=== PATIENT | male | born 1940 | race Caucasian/White ===

== ENCOUNTER 2020-04-29 16:28 | Inpatient (IN) ==
[2020-04-30] MEDS ORDERED: Acetaminophen 325 MG TABLET PO PRN (16:42)
[2020-04-30] MEDS: Insulin LISPRO 300 UNITS/3 ML VIAL SQ SCH ×2 (17:21→21:02)
[2020-04-30] MEDS: Gabapentin 300 MG CAPSULE PO SCH (20:59)
[2020-04-30] MEDS: Acetaminophen 325 MG TABLET PO SCH (21:00)
[2020-04-30] MEDS: ANAGRELIDE HCL 1 MG PO SCH (21:05)
[2020-05-01 05:31] LABS: Basophils # 0.1 K/mcL (0.0-0.2); Basophils % 0.8 %; Eosinophils # 0.2 K/mcL (0.0-0.6); Eosinophils % 1.7 %; Hematocrit 35.7 % (37.5-50.1); Hemoglobin 11.4 g/dL (12.9-16.9); Immature Granulocytes % 4.4 % (0-4); Lymphocytes % 10.6 %; Mean Corpuscular HGB Conc 31.9 g/dL (31.6-35.5); Mean Corpuscular Hemoglobin 27.7 pg (28.0-33.3); Mean Corpuscular Volume 86.9 fL (83.0-100.0); Mean Platelet Volume 11.6 fL (9.4-12.4); Monocytes # 0.6 K/mcL (0.0-1.3); Monocytes % 7.1 %; Neutrophils # 6.8 K/mcL (1.6-8.9); Nucleated Red Blood Cells 0.2 /100 WBC (0); Platelet Count 221 K/mcL (140-400); Red Blood Count 4.11 M/mcL (4.19-5.50); Red Cell Distribution Width 18.9 % (11.5-14.5); Segmented Neutrophils % 75.4 %
[2020-05-01 05:46] LABS: Calcium 9.3 mg/dL (8.6-10.3); Potassium 4.1 mEq/L (3.5-5.1)
[2020-05-01] MEDS: Insulin LISPRO 300 UNITS/3 ML VIAL SQ SCH ×4 (08:45→21:59)
[2020-05-01] MEDS: amLODIPine 5 MG TABLET PO SCH (08:52)
[2020-05-01] MEDS: allopurinoL 100 MG TABLET PO SCH (08:52)
[2020-05-01] MEDS: Cholecalciferol (D-3) 1,000 UNIT (25MCG) TABLET PO SCH (08:52)
[2020-05-01] MEDS: Gabapentin 300 MG CAPSULE PO SCH ×2 (08:52→21:51)
[2020-05-01] MEDS: Acetaminophen 325 MG TABLET PO SCH ×2 (08:52→21:50)
[2020-05-01] MEDS: Aspirin Enteric Coated 81 MG Tablet PO SCH (08:52)
[2020-05-01] MEDS: Insulin DETEMIR 100 UNIT/ML X5UNITS SQ SCH (08:53)
[2020-05-01] MEDS: (Alogliptin Benzoate [Alogliptin] 12.5 MG) PO SCH (08:53)
[2020-05-01] MEDS: ANAGRELIDE HCL 1 MG PO SCH ×2 (08:53→22:00)
[2020-05-01] MEDS ORDERED: Ondansetron 4 MG/2 ML VIAL IVP PRN (19:25)
[2020-05-02] MEDS: Cholecalciferol (D-3) 1,000 UNIT (25MCG) TABLET PO SCH (08:38)
[2020-05-02] MEDS: Gabapentin 300 MG CAPSULE PO SCH ×2 (08:38→21:13)
[2020-05-02] MEDS: Aspirin Enteric Coated 81 MG Tablet PO SCH (08:38)
[2020-05-02] MEDS: amLODIPine 5 MG TABLET PO SCH (08:39)
[2020-05-02] MEDS: Insulin DETEMIR 100 UNIT/ML X5UNITS SQ SCH (08:39)
[2020-05-02] MEDS: allopurinoL 100 MG TABLET PO SCH (08:39)
[2020-05-02] MEDS: Insulin LISPRO 300 UNITS/3 ML VIAL SQ SCH ×4 (08:39→21:12)
[2020-05-02] MEDS: Acetaminophen 325 MG TABLET PO SCH ×2 (08:39→21:14)
[2020-05-02] MEDS: (Alogliptin Benzoate [Alogliptin] 12.5 MG) PO SCH (08:52)
[2020-05-02] MEDS: ANAGRELIDE HCL 1 MG PO SCH ×2 (08:52→21:14)
[2020-05-02 12:43] LABS: Adenovirus Not Detected (Not Detect); Bordetella Pertussis Not Detected (Not Detect); Chlamydophila pneumoniae Not Detected (Not Detect); Coronavirus 229E Not Detected (Not Detect); Coronavirus HKU1 Not Detected (Not Detect); Coronavirus NL63 Not Detected (Not Detect); Coronavirus OC43 Not Detected (Not Detect); Human Metapneumovirus Not Detected (Not Detect); Human Rhinovirus/Enterovirus Not Detected (Not Detect); Influenza A Subtype 2009 H1 Not Detected (Not Detect); Influenza B Not Detected (Not Detect); Mycoplasma pneumoniae Not Detected (Not Detect); Parainfluenza Virus 1 Not Detected (Not Detect); Parainfluenza Virus 2 Not Detected (Not Detect); Parainfluenza Virus 3 Not Detected (Not Detect); Parainfluenza Virus 4 Not Detected (Not Detect); Respiratory Syncytial Virus Not Detected (Not Detect)
[2020-05-02 12:46] LABS: SARS-CoV-2 Not Detected (Not Detect)
[2020-05-02 13:35] LABS: Basophils # 0.1 K/mcL (0.0-0.2); Basophils % 0.3 %; Eosinophils # 0.1 K/mcL (0.0-0.6); Eosinophils % 0.4 %; Hematocrit 35.3 % (37.5-50.1); Hemoglobin 11.3 g/dL (12.9-16.9); Immature Granulocytes % 1.9 % (0-4); Lymphocytes # 0.6 K/mcL (0.6-4.6); Lymphocytes % 4.2 %; Mean Corpuscular Volume 87.4 fL (83.0-100.0); Mean Platelet Volume 11.8 fL (9.4-12.4); Monocytes # 0.8 K/mcL (0.0-1.3); Monocytes % 5.4 %; Neutrophils # 13.3 K/mcL (1.6-8.9); Platelet Count 254 K/mcL (140-400); Red Blood Count 4.04 M/mcL (4.19-5.50); Red Cell Distribution Width 19.3 % (11.5-14.5); Segmented Neutrophils % 87.8 %; White Blood Count 15.1 K/mcL (4.3-11.1)
[2020-05-02 13:45] LABS: Calcium 8.9 mg/dL (8.6-10.3); Potassium 4.3 mEq/L (3.5-5.1)
[2020-05-02] MEDS: Piperacillin/Tazobactam 3.375 GM in 0.9 % Sodium Chloride Mini Bag 100 ML IVPB SCH (16:09)
[2020-05-03] MEDS: Piperacillin/Tazobactam 3.375 GM in 0.9 % Sodium Chloride Mini Bag 100 ML IVPB SCH ×3 (00:44→15:17)
[2020-05-03 07:20] LABS: Basophils % 0.3 %; Eosinophils # 0.2 K/mcL (0.0-0.6); Eosinophils % 1.8 %; Hemoglobin 10.5 g/dL (12.9-16.9); Immature Granulocytes % 1.5 % (0-4); Lymphocytes # 0.7 K/mcL (0.6-4.6); Lymphocytes % 6.1 %; Mean Corpuscular HGB Conc 31.8 g/dL (31.6-35.5); Mean Corpuscular Hemoglobin 27.9 pg (28.0-33.3); Mean Corpuscular Volume 87.5 fL (83.0-100.0); Mean Platelet Volume 12.2 fL (9.4-12.4); Monocytes # 0.9 K/mcL (0.0-1.3); Monocytes % 7.9 %; Nucleated Red Blood Cells 0.2 /100 WBC (0); Platelet Count 231 K/mcL (140-400); Red Blood Count 3.77 M/mcL (4.19-5.50); Red Cell Distribution Width 19.4 % (11.5-14.5); Segmented Neutrophils % 82.4 %; White Blood Count 11.5 K/mcL (4.3-11.1)
[2020-05-03 07:41] LABS: Neutrophils # 9.5 K/mcL (1.6-8.9)
[2020-05-03] MEDS: Insulin LISPRO 300 UNITS/3 ML VIAL SQ SCH ×4 (08:03→21:12)
[2020-05-03 08:47] LABS: Calcium 8.9 mg/dL (8.6-10.3); Potassium 4.2 mEq/L (3.5-5.1)
[2020-05-03] MEDS: Cholecalciferol (D-3) 1,000 UNIT (25MCG) TABLET PO SCH (09:34)
[2020-05-03] MEDS: Gabapentin 300 MG CAPSULE PO SCH ×2 (09:34→21:04)
[2020-05-03] MEDS: allopurinoL 100 MG TABLET PO SCH (09:35)
[2020-05-03] MEDS: Acetaminophen 325 MG TABLET PO SCH ×2 (09:35→21:03)
[2020-05-03] MEDS: Aspirin Enteric Coated 81 MG Tablet PO SCH (09:35)
[2020-05-03] MEDS: amLODIPine 5 MG TABLET PO SCH (09:36)
[2020-05-03] MEDS: (Alogliptin Benzoate [Alogliptin] 12.5 MG) PO SCH (09:37)
[2020-05-03] MEDS: ANAGRELIDE HCL 1 MG PO SCH ×2 (09:37→21:04)
[2020-05-03] MEDS: 0.9 % Sodium Chloride 1,000 ML IVC SCH (09:38)
[2020-05-03] MEDS: Insulin DETEMIR 100 UNIT/ML X5UNITS SQ SCH (09:42)
[2020-05-04] MEDS: Piperacillin/Tazobactam 3.375 GM in 0.9 % Sodium Chloride Mini Bag 100 ML IVPB SCH ×4 (01:43→23:02)
[2020-05-04] MEDS: 0.9 % Sodium Chloride 1,000 ML IVC SCH ×4 (06:33→19:53)
[2020-05-04] MEDS: Insulin LISPRO 300 UNITS/3 ML VIAL SQ SCH ×4 (07:50→20:16)
[2020-05-04] MEDS: amLODIPine 5 MG TABLET PO SCH (07:52)
[2020-05-04] MEDS: Cholecalciferol (D-3) 1,000 UNIT (25MCG) TABLET PO SCH (07:52)
[2020-05-04] MEDS: Acetaminophen 325 MG TABLET PO SCH ×2 (07:53→19:52)
[2020-05-04] MEDS: Aspirin Enteric Coated 81 MG Tablet PO SCH (07:53)
[2020-05-04] MEDS: allopurinoL 100 MG TABLET PO SCH (07:53)
[2020-05-04] MEDS: Gabapentin 300 MG CAPSULE PO SCH ×2 (07:53→19:51)
[2020-05-04] MEDS: ANAGRELIDE HCL 1 MG PO SCH ×2 (07:53→22:06)
[2020-05-04] MEDS: (Alogliptin Benzoate [Alogliptin] 12.5 MG) PO SCH (07:53)
[2020-05-04] MEDS: Insulin DETEMIR 100 UNIT/ML X5UNITS SQ SCH (08:07)
[2020-05-05] MEDS: 0.9 % Sodium Chloride 1,000 ML IVC SCH ×2 (04:07→10:56)
[2020-05-05 06:02] LABS: Hematocrit 33.2 % (37.5-50.1); Hemoglobin 10.5 g/dL (12.9-16.9); Mean Corpuscular HGB Conc 31.6 g/dL (31.6-35.5); Mean Corpuscular Hemoglobin 27.8 pg (28.0-33.3); Mean Corpuscular Volume 87.8 fL (83.0-100.0); Mean Platelet Volume 12.3 fL (9.4-12.4); Platelet Count 283 K/mcL (140-400); Red Blood Count 3.78 M/mcL (4.19-5.50)
[2020-05-05 06:21] LABS: Calcium 8.9 mg/dL (8.6-10.3); Potassium 4.1 mEq/L (3.5-5.1)
[2020-05-05] MEDS: Cholecalciferol (D-3) 1,000 UNIT (25MCG) TABLET PO SCH (08:23)
[2020-05-05] MEDS: Piperacillin/Tazobactam 3.375 GM in 0.9 % Sodium Chloride Mini Bag 100 ML IVPB SCH (08:23)
[2020-05-05] MEDS: Gabapentin 300 MG CAPSULE PO SCH ×2 (08:23→20:51)
[2020-05-05] MEDS: Aspirin Enteric Coated 81 MG Tablet PO SCH (08:24)
[2020-05-05] MEDS: Insulin DETEMIR 100 UNIT/ML X5UNITS SQ SCH (08:24)
[2020-05-05] MEDS: Acetaminophen 325 MG TABLET PO SCH ×2 (08:24→20:54)
[2020-05-05] MEDS: allopurinoL 100 MG TABLET PO SCH (08:24)
[2020-05-05] MEDS: Insulin LISPRO 300 UNITS/3 ML VIAL SQ SCH ×4 (08:24→20:43)
[2020-05-05] MEDS: amLODIPine 5 MG TABLET PO SCH (08:24)
[2020-05-05] MEDS: (Alogliptin Benzoate [Alogliptin] 12.5 MG) PO SCH (09:24)
[2020-05-05] MEDS: ANAGRELIDE HCL 1 MG PO SCH ×2 (09:24→20:55)
[2020-05-06] MEDS: polyethylene glycoL 3350 17 GM POWD.PACK PO SCH (08:35)
[2020-05-06] MEDS: Cholecalciferol (D-3) 1,000 UNIT (25MCG) TABLET PO SCH (08:35)
[2020-05-06] MEDS: Gabapentin 300 MG CAPSULE PO SCH ×2 (08:36→20:20)
[2020-05-06] MEDS: amLODIPine 5 MG TABLET PO SCH (08:36)
[2020-05-06] MEDS: allopurinoL 100 MG TABLET PO SCH (08:36)
[2020-05-06] MEDS: Acetaminophen 325 MG TABLET PO SCH ×2 (08:36→20:24)
[2020-05-06] MEDS: Aspirin Enteric Coated 81 MG Tablet PO SCH (08:36)
[2020-05-06] MEDS: ANAGRELIDE HCL 1 MG PO SCH ×2 (08:37→20:24)
[2020-05-06] MEDS: Insulin LISPRO 300 UNITS/3 ML VIAL SQ SCH ×4 (08:37→20:27)
[2020-05-06] MEDS: (Alogliptin Benzoate [Alogliptin] 12.5 MG) PO SCH (08:37)
[2020-05-06 11:02] LABS: Albumin 3.9 g/dL (3.5-5.7); Albumin/Globulin Ratio 1.4 (1.1-2.2); Bilirubin,Total 0.6 mg/dL (0.3-1.0); Calcium 9.1 mg/dL (8.6-10.3); Globulin 2.7 g/dL (2.4-3.5); Magnesium 1.7 mg/dL (1.6-2.6); Potassium 4.1 mEq/L (3.5-5.1); Total Protein 6.6 g/dL (6.4-8.9)
[2020-05-06] MEDS: Insulin DETEMIR 100 UNIT/ML X5UNITS SQ SCH (11:47)
[2020-05-07] MEDS: Acetaminophen 325 MG TABLET PO SCH ×2 (08:39→19:47)
[2020-05-07] MEDS: Aspirin Enteric Coated 81 MG Tablet PO SCH (08:39)
[2020-05-07] MEDS: Gabapentin 300 MG CAPSULE PO SCH ×2 (08:39→19:48)
[2020-05-07] MEDS: allopurinoL 100 MG TABLET PO SCH (08:40)
[2020-05-07] MEDS: Insulin LISPRO 300 UNITS/3 ML VIAL SQ SCH ×4 (08:41→21:03)
[2020-05-07] MEDS: amLODIPine 5 MG TABLET PO SCH (08:41)
[2020-05-07] MEDS: polyethylene glycoL 3350 17 GM POWD.PACK PO SCH (08:41)
[2020-05-07] MEDS: Cholecalciferol (D-3) 1,000 UNIT (25MCG) TABLET PO SCH (08:41)
[2020-05-07] MEDS: ANAGRELIDE HCL 1 MG PO SCH ×2 (08:42→19:51)
[2020-05-07] MEDS: (Alogliptin Benzoate [Alogliptin] 12.5 MG) PO SCH (08:42)
[2020-05-07] MEDS: Insulin DETEMIR 100 UNIT/ML X5UNITS SQ SCH (12:02)
[2020-05-08 05:43] LABS: Hematocrit 33.5 % (37.5-50.1); Mean Corpuscular HGB Conc 32.8 g/dL (31.6-35.5); Mean Corpuscular Hemoglobin 28.4 pg (28.0-33.3); Mean Corpuscular Volume 86.3 fL (83.0-100.0); Mean Platelet Volume 11.8 fL (9.4-12.4); Platelet Count 362 K/mcL (140-400); Red Blood Count 3.88 M/mcL (4.19-5.50); Red Cell Distribution Width 18.9 % (11.5-14.5); White Blood Count 12.4 K/mcL (4.3-11.1)
[2020-05-08 05:58] LABS: Magnesium 2.1 mg/dL (1.6-2.6); Potassium 4.1 mEq/L (3.5-5.1)
[2020-05-08] MEDS: Insulin LISPRO 300 UNITS/3 ML VIAL SQ SCH ×4 (07:24→20:32)
[2020-05-08] MEDS: amLODIPine 5 MG TABLET PO SCH (08:06)
[2020-05-08] MEDS: Gabapentin 300 MG CAPSULE PO SCH ×2 (08:06→20:45)
[2020-05-08] MEDS: allopurinoL 100 MG TABLET PO SCH (08:06)
[2020-05-08] MEDS: Acetaminophen 325 MG TABLET PO SCH ×2 (08:06→20:49)
[2020-05-08] MEDS: Aspirin Enteric Coated 81 MG Tablet PO SCH (08:06)
[2020-05-08] MEDS: (Alogliptin Benzoate [Alogliptin] 12.5 MG) PO SCH (08:07)
[2020-05-08] MEDS: Cholecalciferol (D-3) 1,000 UNIT (25MCG) TABLET PO SCH (08:07)
[2020-05-08] MEDS: ANAGRELIDE HCL 1 MG PO SCH ×2 (08:07→20:58)
[2020-05-08] MEDS: polyethylene glycoL 3350 17 GM POWD.PACK PO SCH (08:08)
[2020-05-08] MEDS: Insulin DETEMIR 100 UNIT/ML X5UNITS SQ SCH (10:17)
[2020-05-09] MEDS: allopurinoL 100 MG TABLET PO SCH (08:45)
[2020-05-09] MEDS: amLODIPine 5 MG TABLET PO SCH (08:46)
[2020-05-09] MEDS: Aspirin Enteric Coated 81 MG Tablet PO SCH (08:46)
[2020-05-09] MEDS: Gabapentin 300 MG CAPSULE PO SCH ×2 (08:46→23:06)
[2020-05-09] MEDS: Acetaminophen 325 MG TABLET PO SCH ×2 (08:46→23:11)
[2020-05-09] MEDS: (Alogliptin Benzoate [Alogliptin] 12.5 MG) PO SCH (08:47)
[2020-05-09] MEDS: polyethylene glycoL 3350 17 GM POWD.PACK PO SCH (08:47)
[2020-05-09] MEDS: ANAGRELIDE HCL 1 MG PO SCH ×2 (08:47→22:20)
[2020-05-09] MEDS: Cholecalciferol (D-3) 1,000 UNIT (25MCG) TABLET PO SCH (08:48)
[2020-05-09] MEDS: Insulin LISPRO 300 UNITS/3 ML VIAL SQ SCH ×4 (08:48→22:21)
[2020-05-09] MEDS: Insulin DETEMIR 100 UNIT/ML X5UNITS SQ SCH (09:39)
[2020-05-09 12:33] LABS: Basophils # 0.1 K/mcL (0.0-0.2); Basophils % 0.7 %; Eosinophils # 0.5 K/mcL (0.0-0.6); Hematocrit 36.1 % (37.5-50.1); Hemoglobin 11.6 g/dL (12.9-16.9); Immature Granulocytes % 4.7 % (0-4); Lymphocytes # 1.2 K/mcL (0.6-4.6); Lymphocytes % 7.5 %; Mean Corpuscular HGB Conc 32.1 g/dL (31.6-35.5); Mean Platelet Volume 10.8 fL (9.4-12.4); Monocytes # 0.9 K/mcL (0.0-1.3); Monocytes % 5.6 %; Neutrophils # 12.4 K/mcL (1.6-8.9); Platelet Count 449 K/mcL (140-400); Red Blood Count 4.15 M/mcL (4.19-5.50); Red Cell Distribution Width 19.4 % (11.5-14.5); Segmented Neutrophils % 78.5 %; White Blood Count 15.8 K/mcL (4.3-11.1)
[2020-05-09 12:53] LABS: Calcium 9.1 mg/dL (8.6-10.3); Potassium 4.6 mEq/L (3.5-5.1)
[2020-05-10] MEDS: Acetaminophen 325 MG TABLET PO SCH ×2 (08:35→20:56)
[2020-05-10] MEDS: Gabapentin 300 MG CAPSULE PO SCH ×2 (08:35→20:58)
[2020-05-10] MEDS: amLODIPine 5 MG TABLET PO SCH (08:35)
[2020-05-10] MEDS: Cholecalciferol (D-3) 1,000 UNIT (25MCG) TABLET PO SCH (08:35)
[2020-05-10] MEDS: Aspirin Enteric Coated 81 MG Tablet PO SCH (08:35)
[2020-05-10] MEDS: allopurinoL 100 MG TABLET PO SCH (08:35)
[2020-05-10] MEDS: ANAGRELIDE HCL 1 MG PO SCH ×2 (08:36→21:00)
[2020-05-10] MEDS: polyethylene glycoL 3350 17 GM POWD.PACK PO SCH (08:36)
[2020-05-10] MEDS: Insulin LISPRO 300 UNITS/3 ML VIAL SQ SCH ×4 (08:36→21:00)
[2020-05-10] MEDS: (Alogliptin Benzoate [Alogliptin] 12.5 MG) PO SCH (08:36)
[2020-05-10] MEDS: Insulin DETEMIR 100 UNIT/ML X5UNITS SQ SCH (08:44)
[2020-05-10] MEDS ORDERED: 0.9 % Sodium Chloride 1,000 ML IVC SCH (09:00)
[2020-05-10 12:08] LABS: Bilirubin,Urine Negative (Negative); Blood,Urine Negative (Negative); Clarity,Urine Clear (Clear); Color,Urine Yellow (Yellow); Glucose,Urine (UA) Normal (Normal); Ketones,Urine Negative (Negative); Leukocyte Esterase,Urine Trace (Negative); Nitrite,Urine Negative (Negative); PH,Urine 5.5 pH Units (5.0-8.0); Protein,Urine Trace mg/dL (Neg-Trace); Specific Gravity,Urine 1.025 (1.010-1.025); Urobilinogen,Urine Normal (Normal)
[2020-05-10 12:23] LABS: Bacteria,Urine Few per hpf (None-Few); RBC,Urine 0-3 per hpf (0-3)
[2020-05-11 05:51] LABS: Basophils # 0.1 K/mcL (0.0-0.2); Basophils % 0.7 %; Eosinophils # 0.4 K/mcL (0.0-0.6); Eosinophils % 3.6 %; Hematocrit 31.6 % (37.5-50.1); Hemoglobin 10.3 g/dL (12.9-16.9); Immature Granulocytes % 5.2 % (0-4); Lymphocytes # 1.2 K/mcL (0.6-4.6); Lymphocytes % 9.9 %; Mean Corpuscular HGB Conc 32.6 g/dL (31.6-35.5); Mean Corpuscular Hemoglobin 28.3 pg (28.0-33.3); Mean Corpuscular Volume 86.8 fL (83.0-100.0); Mean Platelet Volume 10.7 fL (9.4-12.4); Monocytes # 0.7 K/mcL (0.0-1.3); Monocytes % 5.9 %; Platelet Count 415 K/mcL (140-400); Red Blood Count 3.64 M/mcL (4.19-5.50); Red Cell Distribution Width 19.2 % (11.5-14.5); Segmented Neutrophils % 74.7 %
[2020-05-11 06:10] LABS: Calcium 8.6 mg/dL (8.6-10.3)
[2020-05-11] MEDS: allopurinoL 100 MG TABLET PO SCH (08:55)
[2020-05-11] MEDS: amLODIPine 5 MG TABLET PO SCH (08:55)
[2020-05-11] MEDS: Gabapentin 300 MG CAPSULE PO SCH ×2 (08:55→23:14)
[2020-05-11] MEDS: Acetaminophen 325 MG TABLET PO SCH ×2 (08:55→23:15)
[2020-05-11] MEDS: Aspirin Enteric Coated 81 MG Tablet PO SCH (08:55)
[2020-05-11] MEDS: polyethylene glycoL 3350 17 GM POWD.PACK PO SCH (08:56)
[2020-05-11] MEDS: Insulin LISPRO 300 UNITS/3 ML VIAL SQ SCH ×4 (08:56→23:15)
[2020-05-11] MEDS: (Alogliptin Benzoate [Alogliptin] 12.5 MG) PO SCH (08:56)
[2020-05-11] MEDS: Cholecalciferol (D-3) 1,000 UNIT (25MCG) TABLET PO SCH (08:56)
[2020-05-11] MEDS: ANAGRELIDE HCL 1 MG PO SCH ×2 (08:56→23:16)
[2020-05-11] MEDS: Insulin DETEMIR 100 UNIT/ML X5UNITS SQ SCH (08:56)
[2020-05-12] MEDS: Gabapentin 300 MG CAPSULE PO SCH ×2 (08:57→20:55)
[2020-05-12] MEDS: Acetaminophen 325 MG TABLET PO SCH ×2 (08:57→20:55)
[2020-05-12] MEDS: amLODIPine 5 MG TABLET PO SCH (08:57)
[2020-05-12] MEDS: allopurinoL 100 MG TABLET PO SCH (08:57)
[2020-05-12] MEDS: Insulin DETEMIR 100 UNIT/ML X5UNITS SQ SCH (08:58)
[2020-05-12] MEDS: Aspirin Enteric Coated 81 MG Tablet PO SCH (08:58)
[2020-05-12] MEDS: Insulin LISPRO 300 UNITS/3 ML VIAL SQ SCH ×4 (08:58→20:56)
[2020-05-12] MEDS: ANAGRELIDE HCL 1 MG PO SCH ×2 (08:58→20:56)
[2020-05-12] MEDS: (Alogliptin Benzoate [Alogliptin] 12.5 MG) PO SCH (08:58)
[2020-05-12] MEDS: Cholecalciferol (D-3) 1,000 UNIT (25MCG) TABLET PO SCH (08:59)
[2020-05-12] MEDS: polyethylene glycoL 3350 17 GM POWD.PACK PO SCH (09:00)
[2020-05-13 05:25] LABS: Basophils # 0.1 K/mcL (0.0-0.2); Basophils % 0.9 %; Eosinophils # 0.4 K/mcL (0.0-0.6); Eosinophils % 4.1 %; Hematocrit 32.1 % (37.5-50.1); Hemoglobin 10.3 g/dL (12.9-16.9); Immature Granulocytes % 4.3 % (0-4); Lymphocytes # 1.1 K/mcL (0.6-4.6); Lymphocytes % 10.9 %; Mean Corpuscular HGB Conc 32.1 g/dL (31.6-35.5); Mean Corpuscular Hemoglobin 28.2 pg (28.0-33.3); Mean Corpuscular Volume 87.9 fL (83.0-100.0); Mean Platelet Volume 10.4 fL (9.4-12.4); Monocytes # 0.8 K/mcL (0.0-1.3); Monocytes % 7.7 %; Neutrophils # 7.4 K/mcL (1.6-8.9); Platelet Count 426 K/mcL (140-400); Red Blood Count 3.65 M/mcL (4.19-5.50); Red Cell Distribution Width 19.4 % (11.5-14.5); Segmented Neutrophils % 72.1 %; White Blood Count 10.2 K/mcL (4.3-11.1)
[2020-05-13 05:42] LABS: BUN/Creatinine Ratio 29 (6-26); Blood Urea Nitrogen 40 mg/dL (8-23); Calcium 8.7 mg/dL (8.6-10.3); Carbon Dioxide 25 mEq/L (23-29); Chloride 112 mEq/L (98-107); Glucose 97 mg/dL (70-105); Osmolality,Calculated 306 (280-300); Potassium 4.3 mEq/L (3.5-5.1); Sodium 143 mEq/L (136-145); eGFR For African Americans > 60 (> 60); eGFR For Non-African Americans 50 (> 60)
[2020-05-13] MEDS: Insulin LISPRO 300 UNITS/3 ML VIAL SQ SCH ×4 (08:43→21:17)
[2020-05-13] MEDS: Acetaminophen 325 MG TABLET PO SCH ×2 (08:53→21:17)
[2020-05-13] MEDS: Cholecalciferol (D-3) 1,000 UNIT (25MCG) TABLET PO SCH (08:53)
[2020-05-13] MEDS: Aspirin Enteric Coated 81 MG Tablet PO SCH (08:53)
[2020-05-13] MEDS: amLODIPine 5 MG TABLET PO SCH (08:53)
[2020-05-13] MEDS: allopurinoL 100 MG TABLET PO SCH (08:53)
[2020-05-13] MEDS: Insulin DETEMIR 100 UNIT/ML X5UNITS SQ SCH (08:54)
[2020-05-13] MEDS: Gabapentin 300 MG CAPSULE PO SCH ×2 (08:54→21:16)
[2020-05-13] MEDS: polyethylene glycoL 3350 17 GM POWD.PACK PO SCH (08:54)
[2020-05-13] MEDS: ANAGRELIDE HCL 1 MG PO SCH ×2 (08:55→21:17)
[2020-05-13] MEDS: (Alogliptin Benzoate [Alogliptin] 12.5 MG) PO SCH (08:55)
[2020-05-14] MEDS: allopurinoL 100 MG TABLET PO SCH (08:17)
[2020-05-14] MEDS: Cholecalciferol (D-3) 1,000 UNIT (25MCG) TABLET PO SCH (08:17)
[2020-05-14] MEDS: amLODIPine 5 MG TABLET PO SCH (08:17)
[2020-05-14] MEDS: Aspirin Enteric Coated 81 MG Tablet PO SCH (08:17)
[2020-05-14] MEDS: Acetaminophen 325 MG TABLET PO SCH ×2 (08:18→21:12)
[2020-05-14] MEDS: Insulin LISPRO 300 UNITS/3 ML VIAL SQ SCH ×4 (08:18→21:11)
[2020-05-14] MEDS: ANAGRELIDE HCL 1 MG PO SCH ×2 (08:18→21:13)
[2020-05-14] MEDS: polyethylene glycoL 3350 17 GM POWD.PACK PO SCH (08:18)
[2020-05-14] MEDS: (Alogliptin Benzoate [Alogliptin] 12.5 MG) PO SCH (08:18)
[2020-05-14] MEDS: Gabapentin 300 MG CAPSULE PO SCH ×2 (08:18→21:12)
[2020-05-14] MEDS: Insulin DETEMIR 100 UNIT/ML X5UNITS SQ SCH (08:30)
[2020-05-14] MEDS ORDERED: tiZANidine 4 MG TABLET PO ONE (23:24)
[2020-05-15] MEDS: Insulin LISPRO 300 UNITS/3 ML VIAL SQ SCH ×4 (09:17→21:05)
[2020-05-15] MEDS: Insulin DETEMIR 100 UNIT/ML X5UNITS SQ SCH (09:25)
[2020-05-15] MEDS: Gabapentin 300 MG CAPSULE PO SCH ×2 (09:26→21:02)
[2020-05-15] MEDS: amLODIPine 5 MG TABLET PO SCH (09:26)
[2020-05-15] MEDS: Cholecalciferol (D-3) 1,000 UNIT (25MCG) TABLET PO SCH (09:26)
[2020-05-15] MEDS: Acetaminophen 325 MG TABLET PO SCH ×2 (09:26→21:03)
[2020-05-15] MEDS: Aspirin Enteric Coated 81 MG Tablet PO SCH (09:26)
[2020-05-15] MEDS: (Alogliptin Benzoate [Alogliptin] 12.5 MG) PO SCH (09:27)
[2020-05-15] MEDS: allopurinoL 100 MG TABLET PO SCH (09:27)
[2020-05-15] MEDS: ANAGRELIDE HCL 1 MG PO SCH ×2 (09:27→21:05)
[2020-05-15] MEDS: polyethylene glycoL 3350 17 GM POWD.PACK PO SCH (09:27)
[2020-05-16] MEDS: amLODIPine 5 MG TABLET PO SCH (08:36)
[2020-05-16] MEDS: Aspirin Enteric Coated 81 MG Tablet PO SCH (08:36)
[2020-05-16] MEDS: allopurinoL 100 MG TABLET PO SCH (08:36)
[2020-05-16] MEDS: Acetaminophen 325 MG TABLET PO SCH ×2 (08:36→20:44)
[2020-05-16] MEDS: Insulin DETEMIR 100 UNIT/ML X5UNITS SQ SCH (08:36)
[2020-05-16] MEDS: Cholecalciferol (D-3) 1,000 UNIT (25MCG) TABLET PO SCH (08:36)
[2020-05-16] MEDS: Gabapentin 300 MG CAPSULE PO SCH ×2 (08:36→20:46)
[2020-05-16] MEDS: ANAGRELIDE HCL 1 MG PO SCH ×2 (08:37→20:48)
[2020-05-16] MEDS: Insulin LISPRO 300 UNITS/3 ML VIAL SQ SCH ×4 (08:37→20:48)
[2020-05-16] MEDS: (Alogliptin Benzoate [Alogliptin] 12.5 MG) PO SCH (08:37)
[2020-05-16] MEDS: polyethylene glycoL 3350 17 GM POWD.PACK PO SCH (08:38)
[2020-05-17 05:03] LABS: Hematocrit 31.1 % (37.5-50.1); Mean Corpuscular HGB Conc 32.2 g/dL (31.6-35.5); Mean Corpuscular Hemoglobin 28.2 pg (28.0-33.3); Mean Corpuscular Volume 87.6 fL (83.0-100.0); Mean Platelet Volume 9.9 fL (9.4-12.4); Platelet Count 444 K/mcL (140-400); Red Blood Count 3.55 M/mcL (4.19-5.50); Red Cell Distribution Width 19.9 % (11.5-14.5)
[2020-05-17 05:21] LABS: Albumin 3.5 g/dL (3.5-5.7); Albumin/Globulin Ratio 1.7 (1.1-2.2); Bilirubin,Total 0.5 mg/dL (0.3-1.0); Calcium 8.5 mg/dL (8.6-10.3); Globulin 2.1 g/dL (2.4-3.5); Magnesium 2.1 mg/dL (1.6-2.6); Potassium 4.6 mEq/L (3.5-5.1); Total Protein 5.6 g/dL (6.4-8.9)
[2020-05-17 05:53] LABS: Thyroid Stimulating Hormone 2.007 mcIU/mL (0.340-5.600)
[2020-05-17] MEDS: Gabapentin 300 MG CAPSULE PO SCH ×2 (08:14→19:21)
[2020-05-17] MEDS: allopurinoL 100 MG TABLET PO SCH (08:14)
[2020-05-17] MEDS: Aspirin Enteric Coated 81 MG Tablet PO SCH (08:14)
[2020-05-17] MEDS: amLODIPine 5 MG TABLET PO SCH (08:14)
[2020-05-17] MEDS: Cholecalciferol (D-3) 1,000 UNIT (25MCG) TABLET PO SCH (08:14)
[2020-05-17] MEDS: Acetaminophen 325 MG TABLET PO SCH ×2 (08:14→19:21)
[2020-05-17] MEDS: Insulin DETEMIR 100 UNIT/ML X5UNITS SQ SCH (08:15)
[2020-05-17] MEDS: polyethylene glycoL 3350 17 GM POWD.PACK PO SCH (08:20)
[2020-05-17] MEDS: Insulin LISPRO 300 UNITS/3 ML VIAL SQ SCH ×4 (08:20→19:24)
[2020-05-17] MEDS: (Alogliptin Benzoate [Alogliptin] 12.5 MG) PO SCH (08:21)
[2020-05-17] MEDS: ANAGRELIDE HCL 1 MG PO SCH ×2 (08:21→19:24)
[2020-05-18] MEDS: Gabapentin 300 MG CAPSULE PO SCH ×2 (07:57→21:21)
[2020-05-18] MEDS: Cholecalciferol (D-3) 1,000 UNIT (25MCG) TABLET PO SCH (07:58)
[2020-05-18] MEDS: Acetaminophen 325 MG TABLET PO SCH ×2 (07:58→21:16)
[2020-05-18] MEDS: Aspirin Enteric Coated 81 MG Tablet PO SCH (07:58)
[2020-05-18] MEDS: amLODIPine 5 MG TABLET PO SCH (07:58)
[2020-05-18] MEDS: polyethylene glycoL 3350 17 GM POWD.PACK PO SCH (07:58)
[2020-05-18] MEDS: allopurinoL 100 MG TABLET PO SCH (07:58)
[2020-05-18] MEDS: ANAGRELIDE HCL 1 MG PO SCH ×2 (07:59→21:22)
[2020-05-18] MEDS: (Alogliptin Benzoate [Alogliptin] 12.5 MG) PO SCH (07:59)
[2020-05-18] MEDS: Insulin DETEMIR 100 UNIT/ML X5UNITS SQ SCH (08:03)
[2020-05-18] MEDS: Insulin LISPRO 300 UNITS/3 ML VIAL SQ SCH ×4 (08:11→21:24)
[2020-05-19] MEDS: allopurinoL 100 MG TABLET PO SCH (08:13)
[2020-05-19] MEDS: polyethylene glycoL 3350 17 GM POWD.PACK PO SCH (08:13)
[2020-05-19] MEDS: amLODIPine 5 MG TABLET PO SCH (08:13)
[2020-05-19] MEDS: Cholecalciferol (D-3) 1,000 UNIT (25MCG) TABLET PO SCH (08:13)
[2020-05-19] MEDS: Acetaminophen 325 MG TABLET PO SCH ×2 (08:13→21:28)
[2020-05-19] MEDS: Gabapentin 300 MG CAPSULE PO SCH ×2 (08:13→21:26)
[2020-05-19] MEDS: Aspirin Enteric Coated 81 MG Tablet PO SCH (08:14)
[2020-05-19] MEDS: Insulin DETEMIR 100 UNIT/ML X5UNITS SQ SCH (08:31)
[2020-05-19] MEDS: ANAGRELIDE HCL 1 MG PO SCH ×2 (10:13→21:29)
[2020-05-19] MEDS: Insulin LISPRO 300 UNITS/3 ML VIAL SQ SCH ×4 (10:13→21:30)
[2020-05-19] MEDS: (Alogliptin Benzoate [Alogliptin] 12.5 MG) PO SCH (10:13)
[2020-05-20] MEDS: allopurinoL 100 MG TABLET PO SCH (09:02)
[2020-05-20] MEDS: Cholecalciferol (D-3) 1,000 UNIT (25MCG) TABLET PO SCH (09:02)
[2020-05-20] MEDS: Acetaminophen 325 MG TABLET PO SCH ×2 (09:02→20:01)
[2020-05-20] MEDS: Gabapentin 300 MG CAPSULE PO SCH ×2 (09:02→20:00)
[2020-05-20] MEDS: polyethylene glycoL 3350 17 GM POWD.PACK PO SCH (09:03)
[2020-05-20] MEDS: (Alogliptin Benzoate [Alogliptin] 12.5 MG) PO SCH (09:03)
[2020-05-20] MEDS: ANAGRELIDE HCL 1 MG PO SCH ×2 (09:03→20:04)
[2020-05-20] MEDS: Insulin DETEMIR 100 UNIT/ML X5UNITS SQ SCH (09:03)
[2020-05-20] MEDS: Aspirin Enteric Coated 81 MG Tablet PO SCH (09:03)
[2020-05-20] MEDS: Insulin LISPRO 300 UNITS/3 ML VIAL SQ SCH ×4 (09:03→20:03)
[2020-05-20] MEDS: amLODIPine 5 MG TABLET PO SCH (09:03)
[2020-05-21] MEDS ORDERED: tiZANidine 4 MG TABLET PO ONE (01:39)
[2020-05-21] MEDS: amLODIPine 5 MG TABLET PO SCH (08:42)
[2020-05-21] MEDS: Insulin DETEMIR 100 UNIT/ML X5UNITS SQ SCH (08:43)
[2020-05-21] MEDS: Cholecalciferol (D-3) 1,000 UNIT (25MCG) TABLET PO SCH (08:43)
[2020-05-21] MEDS: Aspirin Enteric Coated 81 MG Tablet PO SCH (08:43)
[2020-05-21] MEDS: Acetaminophen 325 MG TABLET PO SCH ×2 (08:43→21:25)
[2020-05-21] MEDS: Insulin LISPRO 300 UNITS/3 ML VIAL SQ SCH ×4 (08:43→21:30)
[2020-05-21] MEDS: Gabapentin 300 MG CAPSULE PO SCH ×2 (08:43→21:23)
[2020-05-21] MEDS: allopurinoL 100 MG TABLET PO SCH (08:43)
[2020-05-21] MEDS: ANAGRELIDE HCL 1 MG PO SCH ×2 (08:44→21:32)
[2020-05-21] MEDS: (Alogliptin Benzoate [Alogliptin] 12.5 MG) PO SCH (08:44)
[2020-05-21] MEDS: polyethylene glycoL 3350 17 GM POWD.PACK PO SCH (08:44)
[2020-05-21] MEDS ORDERED: E-Z-PAQUE (BARIUM SULF) SUSP 1 BOTTLE PO ONE (12:55)
[2020-05-21] MEDS ORDERED: E-Z-HD (BARIUM SULF) SUSPENSION PO ONE (12:55)
[2020-05-22] MEDS: Insulin LISPRO 300 UNITS/3 ML VIAL SQ SCH ×4 (08:06→20:44)
[2020-05-22] MEDS: (Alogliptin Benzoate [Alogliptin] 12.5 MG) PO SCH (08:07)
[2020-05-22] MEDS: ANAGRELIDE HCL 1 MG PO SCH ×2 (08:07→20:44)
[2020-05-22] MEDS: polyethylene glycoL 3350 17 GM POWD.PACK PO SCH (08:21)
[2020-05-22] MEDS: Gabapentin 300 MG CAPSULE PO SCH ×2 (08:27→20:43)
[2020-05-22] MEDS: allopurinoL 100 MG TABLET PO SCH (08:28)
[2020-05-22] MEDS: Acetaminophen 325 MG TABLET PO SCH ×2 (08:28→20:43)
[2020-05-22] MEDS: amLODIPine 5 MG TABLET PO SCH (08:28)
[2020-05-22] MEDS: Aspirin Enteric Coated 81 MG Tablet PO SCH (08:28)
[2020-05-22] MEDS: Insulin DETEMIR 100 UNIT/ML X5UNITS SQ SCH (08:28)
[2020-05-22] MEDS: Cholecalciferol (D-3) 1,000 UNIT (25MCG) TABLET PO SCH (08:28)
[2020-05-23] MEDS: Insulin LISPRO 300 UNITS/3 ML VIAL SQ SCH ×4 (07:43→20:21)
[2020-05-23] MEDS: Insulin DETEMIR 100 UNIT/ML X5UNITS SQ SCH (09:07)
[2020-05-23] MEDS: (Alogliptin Benzoate [Alogliptin] 12.5 MG) PO SCH (09:08)
[2020-05-23] MEDS: polyethylene glycoL 3350 17 GM POWD.PACK PO SCH (09:08)
[2020-05-23] MEDS: Aspirin Enteric Coated 81 MG Tablet PO SCH (09:09)
[2020-05-23] MEDS: Acetaminophen 325 MG TABLET PO SCH ×2 (09:09→20:21)
[2020-05-23] MEDS: Gabapentin 300 MG CAPSULE PO SCH ×2 (09:09→20:20)
[2020-05-23] MEDS: amLODIPine 5 MG TABLET PO SCH (09:09)
[2020-05-23] MEDS: ANAGRELIDE HCL 1 MG PO SCH ×2 (09:09→20:21)
[2020-05-23] MEDS: Cholecalciferol (D-3) 1,000 UNIT (25MCG) TABLET PO SCH (09:10)
[2020-05-23] MEDS: allopurinoL 100 MG TABLET PO SCH (09:10)
[2020-05-23 11:52] LABS: Basophils # 0.1 K/mcL (0.0-0.2); Basophils % 0.6 %; Eosinophils # 0.4 K/mcL (0.0-0.6); Eosinophils % 2.6 %; Hematocrit 35.1 % (37.5-50.1); Hemoglobin 11.5 g/dL (12.9-16.9); Immature Granulocytes % 2.3 % (0-4); Lymphocytes # 1.1 K/mcL (0.6-4.6); Lymphocytes % 7.7 %; Mean Corpuscular HGB Conc 32.8 g/dL (31.6-35.5); Mean Corpuscular Hemoglobin 28.7 pg (28.0-33.3); Mean Corpuscular Volume 87.5 fL (83.0-100.0); Mean Platelet Volume 10.4 fL (9.4-12.4); Monocytes % 6.5 %; Neutrophils # 11.9 K/mcL (1.6-8.9); Platelet Count 463 K/mcL (140-400); Red Blood Count 4.01 M/mcL (4.19-5.50); Segmented Neutrophils % 80.3 %; White Blood Count 14.8 K/mcL (4.3-11.1)
[2020-05-23 12:12] LABS: Calcium 9.5 mg/dL (8.6-10.3); Potassium 4.4 mEq/L (3.5-5.1)
[2020-05-24 05:19] LABS: Basophils # 0.1 K/mcL (0.0-0.2); Basophils % 0.8 %; Eosinophils # 0.3 K/mcL (0.0-0.6); Eosinophils % 4.1 %; Hematocrit 30.1 % (37.5-50.1); Hemoglobin 9.7 g/dL (12.9-16.9); Immature Granulocytes % 3.5 % (0-4); Lymphocytes # 1.1 K/mcL (0.6-4.6); Lymphocytes % 12.6 %; Mean Corpuscular HGB Conc 32.2 g/dL (31.6-35.5); Mean Corpuscular Hemoglobin 28.2 pg (28.0-33.3); Mean Corpuscular Volume 87.5 fL (83.0-100.0); Mean Platelet Volume 10.2 fL (9.4-12.4); Monocytes # 0.7 K/mcL (0.0-1.3); Monocytes % 8.3 %; Neutrophils # 5.9 K/mcL (1.6-8.9); Platelet Count 384 K/mcL (140-400); Red Blood Count 3.44 M/mcL (4.19-5.50); Red Cell Distribution Width 19.8 % (11.5-14.5); Segmented Neutrophils % 70.7 %; White Blood Count 8.4 K/mcL (4.3-11.1)
[2020-05-24 05:37] LABS: BUN/Creatinine Ratio 30 (6-26); Blood Urea Nitrogen 40 mg/dL (8-23); Calcium 8.9 mg/dL (8.6-10.3); Carbon Dioxide 27 mEq/L (23-29); Chloride 105 mEq/L (98-107); Glucose 92 mg/dL (70-105); Osmolality,Calculated 295 (280-300); Potassium 4.1 mEq/L (3.5-5.1); Sodium 138 mEq/L (136-145); eGFR For African Americans > 60 (> 60); eGFR For Non-African Americans 52 (> 60)
[2020-05-24] MEDS: Acetaminophen 325 MG TABLET PO SCH ×2 (08:15→20:55)
[2020-05-24] MEDS: Insulin DETEMIR 100 UNIT/ML X5UNITS SQ SCH (08:15)
[2020-05-24] MEDS: allopurinoL 100 MG TABLET PO SCH (08:15)
[2020-05-24] MEDS: Gabapentin 300 MG CAPSULE PO SCH ×2 (08:15→20:55)
[2020-05-24] MEDS: Aspirin Enteric Coated 81 MG Tablet PO SCH (08:15)
[2020-05-24] MEDS: Cholecalciferol (D-3) 1,000 UNIT (25MCG) TABLET PO SCH (08:15)
[2020-05-24] MEDS: amLODIPine 5 MG TABLET PO SCH (08:15)
[2020-05-24] MEDS: Insulin LISPRO 300 UNITS/3 ML VIAL SQ SCH ×4 (08:16→21:00)
[2020-05-24] MEDS: ANAGRELIDE HCL 1 MG PO SCH ×2 (08:22→20:56)
[2020-05-24] MEDS: polyethylene glycoL 3350 17 GM POWD.PACK PO SCH (08:22)
[2020-05-24] MEDS: (Alogliptin Benzoate [Alogliptin] 12.5 MG) PO SCH (08:22)
[2020-05-25 04:55] LABS: Basophils # 0.1 K/mcL (0.0-0.2); Basophils % 0.5 %; Eosinophils # 0.4 K/mcL (0.0-0.6); Eosinophils % 4.3 %; Hemoglobin 9.8 g/dL (12.9-16.9); Immature Granulocytes % 4.3 % (0-4); Lymphocytes # 1.1 K/mcL (0.6-4.6); Mean Corpuscular HGB Conc 32.7 g/dL (31.6-35.5); Mean Corpuscular Hemoglobin 28.7 pg (28.0-33.3); Mean Corpuscular Volume 87.7 fL (83.0-100.0); Mean Platelet Volume 10.1 fL (9.4-12.4); Monocytes # 0.8 K/mcL (0.0-1.3); Monocytes % 8.8 %; Neutrophils # 6.5 K/mcL (1.6-8.9); Platelet Count 407 K/mcL (140-400); Red Blood Count 3.42 M/mcL (4.19-5.50); Red Cell Distribution Width 19.8 % (11.5-14.5); Segmented Neutrophils % 70.1 %; White Blood Count 9.3 K/mcL (4.3-11.1)
[2020-05-25] MEDS: Insulin LISPRO 300 UNITS/3 ML VIAL SQ SCH ×4 (08:18→20:15)
[2020-05-25] MEDS: Insulin DETEMIR 100 UNIT/ML X5UNITS SQ SCH (08:19)
[2020-05-25] MEDS: Gabapentin 300 MG CAPSULE PO SCH ×2 (08:20→20:10)
[2020-05-25] MEDS: allopurinoL 100 MG TABLET PO SCH (08:20)
[2020-05-25] MEDS: Acetaminophen 325 MG TABLET PO SCH ×2 (08:21→20:17)
[2020-05-25] MEDS: polyethylene glycoL 3350 17 GM POWD.PACK PO SCH (08:21)
[2020-05-25] MEDS: amLODIPine 5 MG TABLET PO SCH (08:21)
[2020-05-25] MEDS: ANAGRELIDE HCL 1 MG PO SCH ×2 (08:21→20:16)
[2020-05-25] MEDS: Aspirin Enteric Coated 81 MG Tablet PO SCH (08:21)
[2020-05-25] MEDS: (Alogliptin Benzoate [Alogliptin] 12.5 MG) PO SCH (08:21)
[2020-05-25] MEDS: Cholecalciferol (D-3) 1,000 UNIT (25MCG) TABLET PO SCH (08:21)
[2020-05-26 05:18] LABS: Basophils # 0.1 K/mcL (0.0-0.2); Basophils % 0.8 %; Eosinophils # 0.4 K/mcL (0.0-0.6); Hematocrit 29.8 % (37.5-50.1); Hemoglobin 9.7 g/dL (12.9-16.9); Immature Granulocytes % 3.8 % (0-4); Lymphocytes # 1.2 K/mcL (0.6-4.6); Lymphocytes % 13.7 %; Mean Corpuscular HGB Conc 32.6 g/dL (31.6-35.5); Mean Corpuscular Hemoglobin 28.8 pg (28.0-33.3); Mean Corpuscular Volume 88.4 fL (83.0-100.0); Mean Platelet Volume 10.5 fL (9.4-12.4); Monocytes # 0.7 K/mcL (0.0-1.3); Monocytes % 7.7 %; Neutrophils # 6.3 K/mcL (1.6-8.9); Platelet Count 404 K/mcL (140-400); Red Blood Count 3.37 M/mcL (4.19-5.50); Red Cell Distribution Width 20.1 % (11.5-14.5)
[2020-05-26] MEDS: (Alogliptin Benzoate [Alogliptin] 12.5 MG) PO SCH (09:03)
[2020-05-26] MEDS: ANAGRELIDE HCL 1 MG PO SCH ×2 (09:03→22:15)
[2020-05-26] MEDS: Insulin LISPRO 300 UNITS/3 ML VIAL SQ SCH ×4 (09:03→22:14)
[2020-05-26] MEDS: polyethylene glycoL 3350 17 GM POWD.PACK PO SCH (09:12)
[2020-05-26] MEDS: Insulin DETEMIR 100 UNIT/ML X5UNITS SQ SCH (09:13)
[2020-05-26] MEDS: Cholecalciferol (D-3) 1,000 UNIT (25MCG) TABLET PO SCH (09:14)
[2020-05-26] MEDS: amLODIPine 5 MG TABLET PO SCH (09:14)
[2020-05-26] MEDS: Aspirin Enteric Coated 81 MG Tablet PO SCH (09:15)
[2020-05-26] MEDS: allopurinoL 100 MG TABLET PO SCH (09:15)
[2020-05-26] MEDS: Gabapentin 300 MG CAPSULE PO SCH ×2 (09:15→22:13)
[2020-05-26] MEDS: Acetaminophen 325 MG TABLET PO SCH ×2 (09:15→22:14)
[2020-05-27 07:23] VITALS: BP 162/74
[2020-05-27] MEDS: Gabapentin 300 MG CAPSULE PO SCH (08:45)
[2020-05-27] MEDS: Acetaminophen 325 MG TABLET PO SCH (08:46)
[2020-05-27] MEDS: Aspirin Enteric Coated 81 MG Tablet PO SCH (08:46)
[2020-05-27] MEDS: Insulin LISPRO 300 UNITS/3 ML VIAL SQ SCH ×2 (08:46→12:12)
[2020-05-27] MEDS: amLODIPine 5 MG TABLET PO SCH (08:46)
[2020-05-27] MEDS: Cholecalciferol (D-3) 1,000 UNIT (25MCG) TABLET PO SCH (08:46)
[2020-05-27] MEDS: allopurinoL 100 MG TABLET PO SCH (08:46)
[2020-05-27] MEDS: ANAGRELIDE HCL 1 MG PO SCH (08:49)
[2020-05-27] MEDS: (Alogliptin Benzoate [Alogliptin] 12.5 MG) PO SCH (08:49)
[2020-05-27] MEDS: polyethylene glycoL 3350 17 GM POWD.PACK PO SCH (08:49)
[2020-05-27] MEDS: Insulin DETEMIR 100 UNIT/ML X5UNITS SQ SCH (12:12)
== END 2020-05-27 16:09 | disposition home health service (06) | DRG 56 ==
LOC: INPGRE 04-30 14:59
PROVIDERS: ADMIT Family Medicine; ATTEND Family Medicine